=== PATIENT | male | born 1930 | race Caucasian/White ===

== ENCOUNTER 2017-01-21 08:15 | Emergency (ER) | payer MEDICARE, OTHER ==
--- NOTE | ~2017-01-21 | CT71 ---
[facility] A Service of [facility] & [facility] RADIOLOGY TEXT RESULTS PATIENT: BINDU SAUL LOCATION: [facility] : [birth year] UNIT #: [id number] AGE: [address]: Ubaldo Marlow MD SEX: M ORDER DR: [id number] [facility] [address] [place], [place] [address] [id number] E MR#: [id number] [facility] #: [id number] NAME: BINDU SAUL : 1930 SEX: M STUDY DATE/TIME: 01/21/2017 9:52 UNIT: [facility] ROOM: STUDY DESCRIPTION: CT Head Wo Contrast Attending Physician: Ubaldo Marlow M.D. Ordering Physician: Ubaldo Marlow M.D. MEDICAL IMAGING REPORT This report is preliminary unless electronic signature is present EXAM CT head 01/21/2017 HISTORY Pain. Patient describes near syncopal fall yesterday. On blood thinners. Atrial fibrillation. Fell and hit face and head on concrete. Complains of frontal pain, nasal pain, neck pain [address] head performed skull base through vertex without intravenous contrast. This CT exam was performed with one or more of the following radiation dose reduction techniques: automatic exposure control, adjustment of mA and/or kV according to patient size, and iterative reconstruction. COMPARISON STUDY 05/08/2011 FINDINGS Brainstem unremarkable. Cerebellum and cerebral hemispheres show overall preservation of leon matter-white matter differentiation. No intracranial hemorrhage. No evidence of acute cortical ischemia. Extensive subcortical periventricular and deep white matter tract hypodensities likely reflecting sequelae of chronic microvascular ischemia. Midline structures nondisplaced. No acute basal ganglia abnormality. There are basal ganglia calcifications. Ventricles, cisterns, and sulci show mild generalized enlargement consistent with mild generalized atrophy. No intra- or extraaxial mass effect or abnormal intracranial fluid collections. Prominent cavernous carotid and distal vertebral arterial calcifications. The intraorbital soft tissues are unremarkable. Visualized paranasal sinuses and mastoid air cells are clear. Partially visualized nasal bones have an appearance suggesting subtle bilateral nasal bone fractures with subtle leftward angulation. Incompletely visualized on this examination. Please see today's dedicated CT facial STS. [facility] A Service of [facility] & [facility] RADIOLOGY TEXT RESULTS PATIENT: BINDU SAUL [id number] : [birth year] UNIT #: [id number] AGE: [address]: Ubaldo Marlow MD SEX: M ORDER DR: bones for further evaluation. There is probably a fracture of the left superior nasal bone with subtle leftward angulation. Mucosal thickening right maxillary sinus. Soft tissue swelling suggested in the nasal region, incompletely visualized. No soft tissue defect, subcutaneous air, or radiodense foreign body. IMPRESSION 1. No acute-appearing abnormality in brain. Chronic changes include: Mild generalized atrophy, subcortical periventricular and deep white matter tract probable sequelae of chronic microvascular ischemia, prominent atherosclerotic arterial calcifications and cavernous carotid and distal vertebral arteries. 2. Probable bilateral nasal bone fractures incompletely evaluated on this examination. I believe there is mild leftward angulation of the nasal bone fractures. They do not appear significantly distracted. They are incompletely visualized. Please see CT facial bones for further assessment. 3. Soft tissue swelling in the superficial nasal soft tissues. Incompletely visualized. See facial bone CT. 4. Mucosal thickening in the right maxillary sinus. No definite air-fluid levels to suggest acute sinusitis. Dictated by... Jarocho Perez M.D. THIS IS AN ELECTRONICALLY VERIFIED REPORT Jarocho Perez M.D. at 01/21/2017 3:49 PM Arnold TD: 01/21/2017 11:23 JOB #: [id number] MEDICAL IMAGING REPORT Page 1 of 1 COPY
--- NOTE | ~2017-01-21 | CR281 ---
[facility] A Service of [facility] & [facility] RADIOLOGY TEXT RESULTS PATIENT: BINDU SAUL LOCATION: [facility] : [birth year] UNIT #: [id number] AGE: [address]: Ubaldo Marlow MD SEX: M ORDER DR: [id number] [facility] [address] [place], [place] [address] [id number] E MR#: [id number] Acc #: [id number] NAME: BINDU SAUL : 1930 SEX: M STUDY DATE/TIME: 01/21/2017 8:45 UNIT: [facility] ROOM: STUDY DESCRIPTION: CR Wrist Min 3 View Lt Attending Physician: Ubaldo Marlow M.D. Ordering Physician: Ubaldo Marlow M.D. Primary Care Physician: Primary Care Physician No MEDICAL IMAGING REPORT This report is preliminary unless electronic signature is present EXAM Left wrist 3 views INDICATIONS Left hand and wrist pain and swelling and bruising after falling last night. COMPARISON There are no comparisons. FINDINGS There is some calcification involving the TFCC. Carpal alignment maintained. There is minimal ulnar minus variance. There is no acute fracture involving the wrist. There is a fracture at the base of the fifth metacarpal. Please refer to separately dictated hand x-ray for complete findings. There is degenerative change at the base of the thumb. IMPRESSION Fracture at the base of the fifth metacarpal. Please refer to separately dictated hand x-ray for complete details. Dictated by... Nicolas Landers M.D. THIS IS AN ELECTRONICALLY VERIFIED REPORT Nicolas Landers M.D. at 01/22/2017 5:12 PM Juli TD: 01/21/2017 09:59 JOB #: [id number] MEDICAL IMAGING REPORT Page 1 of 1 COPY
--- NOTE | ~2017-01-21 | CT101 ---
[facility] A Service of [facility] & [facility] RADIOLOGY TEXT RESULTS PATIENT: BINDU SAUL LOCATION: [facility] : [birth year] UNIT #: [id number] AGE: [address]: Ubaldo Marlow MD SEX: M ORDER DR: [id number] [facility] [address] [place], [place] [address] [id number] E MR#: [id number] [facility] #: [id number] NAME: BINDU SAUL : 1930 SEX: M STUDY DATE/TIME: 01/21/2017 9:52 UNIT: [facility] ROOM: STUDY DESCRIPTION: CT Maxillofacial Area Wo Cont Attending Physician: Ubaldo Marlow M.D. Ordering Physician: Ubaldo Marlow M.D. MEDICAL IMAGING REPORT This report is preliminary unless electronic signature is present EXAM CT maxillofacial area, 01/21/2017 HISTORY Near syncope, fell today. On blood thinners. Atrial fibrillation. Fell and hit face and head on concrete. Frontal pain, nasal pain, neck pain [address] exam was performed with one or more of the following radiation dose reduction techniques: automatic exposure control, adjustment of mA and/or kV according to patient size, and iterative reconstruction. FINDINGS CT facial bones performed. Bone and soft tissue windows reviewed. Sagittal and coronal reconstructions performed. No acute abnormality in visualized brain. Intraorbital soft tissues unremarkable. Visualized nasopharyngeal, oropharyngeal, pharyngeal mucosal and retropharyngeal spaces unremarkable. Visualized submandibular and parotid glands unremarkable. No adenopathy. Prominent carotid and vertebral arterial calcifications. Mucosal thickening right maxillary sinus. Superficial soft tissue swelling nasal region with what appears to be a small cutaneous laceration right paracentral mid nasal region. No radiodense foreign body. No subcutaneous air. Visualized calvaria intact. Bilateral nasal bone fractures. There are bilateral fracture planes at level of the nasal bridge. On the left a fracture fragment is angled toward the left to a mild degree and distracted from the more medial nasal bridge fragment by about 3.0 mm. On the right the dominant nasal bridge fragment is displaced laterally to left by about 1.0 mm. Secondary fracture plane along the more inferior right nasal bone with subtle left lateral angulation. There is complete STS. [facility] A Service of [facility] RADIOLOGY TEXT RESULTS PATIENT: BINDU SAUL LOCATION: [facility] : [birth year] UNIT #: [id number] AGE: [address]: Ubaldo Marlow MD SEX: M ORDER DR: nondisplaced fracture through the anterior inferior nasal spine. Soft tissue swelling anterior nasal septum. Nasal septum deviates to left. Ostiomeatal complexes are patent. Probable prior surgical intervention right ostiomeatal complex region. The bony structures of orbits intact. Zygomas, zygomatic arches, pterygoid plates, maxillary sinus davis intact. Mandible intact. Streak artifact from dental hardware. Degenerative changes in the visualized upper cervical spine but no fracture seen. Please see dedicated cervical spine CT for further assessment. IMPRESSION 1. Bilateral slightly comminuted nasal bone fractures more pronounced toward the nasal bridge. Minimal leftward angulation of dominant fragments. Minimal distraction of dominant fragments. In addition there is a complete transverse nondisplaced fracture through the anterior inferior nasal spine. Soft tissue swelling in the superficial nasal soft tissues. Probable small cutaneous laceration right paracentral nasal bridge region. No subcutaneous radiodense foreign body. 2. No other acute bony abnormalities. 3. Mucosal thickening right maxillary sinus. Patient appears to be status post prior surgical intervention in the right maxillary region. Correlate clinically. 4. Extensive atherosclerotic vascular calcification. 5. Degenerative changes cervical spine. Please see dedicated CT cervical spine for further assessment. Dictated by... Jarocho Perez M.D. THIS IS AN ELECTRONICALLY VERIFIED REPORT Jarocho Perez M.D. at 01/21/2017 3:50 PM Viola TD: 01/21/2017 11:49 JOB #: [id number] MEDICAL IMAGING REPORT Page 1 of 1 COPY
--- NOTE | ~2017-01-21 | CR141 ---
[facility] A Service of [facility] & [facility] RADIOLOGY TEXT RESULTS PATIENT: BINDU SAUL LOCATION: [facility] : [birth year] UNIT #: [id number] AGE: [address]: Ubaldo Marlow MD SEX: M ORDER DR: [id number] [facility] [address] [place], [place] [address] [id number] E MR#: [id number] Acc #: [id number] NAME: BINDU SAUL : 1930 SEX: M STUDY DATE/TIME: 01/21/2017 8:46 UNIT: [facility] ROOM: STUDY DESCRIPTION: CR Hand Min 3 Views Lt Attending Physician: Ubaldo Marlow M.D. Ordering Physician: Ubaldo Marlow M.D. Primary Care Physician: No Primary Care Physician MEDICAL IMAGING REPORT This report is preliminary unless electronic signature is present EXAM Left hand, 3 views. INDICATION Left hand pain and swelling after falling last night. COMPARISON STUDIES No comparisons. FINDINGS There is a transversely oriented fracture at the base of the fifth metatarsal with some mild ulnar displacement. Fracture appears comminuted. There is associated soft tissue swelling adjacent to the fracture. There is degenerative change at the base of the thumb. Degenerative change involving multiple IP joints. IMPRESSION Fracture at the base of the fifth metacarpal as described. Dictated by... Nicolas Landers M.D. THIS IS AN ELECTRONICALLY VERIFIED REPORT Nicolas Landers M.D. at 01/22/2017 5:12 PM WESLEY/maciej TD: 01/21/2017 09:54 JOB #: [id number] MEDICAL IMAGING REPORT Page 1 of 1 COPY
--- NOTE | ~2017-01-21 | CR72 ---
[facility] A Service of [facility] & [facility] RADIOLOGY TEXT RESULTS PATIENT: BINDU SAUL LOCATION: [facility] : [birth year] UNIT #: [id number] AGE: [address]: Ubaldo Marlow MD SEX: M ORDER DR: [id number] [facility] [address] [place], [place] [address] [id number] E MR#: [id number] Acc #: [id number] NAME: BINDU SAUL : 1930 SEX: M STUDY DATE/TIME: 01/21/2017 8:42 UNIT: [facility] ROOM: STUDY DESCRIPTION: CR Chest Single View Portable Attending Physician: Ubaldo Marlow M.D. Ordering Physician: Ubaldo Marlow M.D. Primary Care Physician: Primary Care Physician No MEDICAL IMAGING REPORT This report is preliminary unless electronic signature is present EXAM Portable chest 01/21/2017 INDICATION Dizziness and fall last night. History of coronary artery disease and atrial fibrillation as well as hypertension. FINDINGS AP portable chest is compared with 01/10/2015. Cardiomegaly is stable. Patient is status post CABG. The thoracic aorta is tortuous and partially calcified. The lungs are clear. No pneumothorax is seen. There are no displaced fractures. IMPRESSION Stable cardiomegaly. No active disease. Dictated by... Luis Eduardo Stallings Jr., M.D. THIS IS AN ELECTRONICALLY VERIFIED REPORT Luis Eduardo Stallings Jr., M.D. at 01/21/2017 4:47 PM MIGDALIA/neelam TD: 01/21/2017 10:05 JOB #: [id number] MEDICAL IMAGING REPORT Page 1 of 1 COPY
--- NOTE | ~2017-01-21 | CT52 ---
[facility] A Service of [facility] & [facility] RADIOLOGY TEXT RESULTS PATIENT: BINDU SAUL LOCATION: [facility] : [birth year] UNIT #: [id number] AGE: [address]: Ubaldo Marlow MD SEX: M ORDER DR: [id number] [facility] [address] [place], [place] [address] [id number] E MR#: [id number] [facility] #: [id number] NAME: BINDU SAUL : 1930 SEX: M STUDY DATE/TIME: 01/21/2017 9:52 UNIT: [facility] ROOM: STUDY DESCRIPTION: CT Cervical Spine Wo Cont Attending Physician: Ubaldo Marlow M.D. Ordering Physician: Ubaldo Marlow M.D. MEDICAL IMAGING REPORT This report is preliminary unless electronic signature is present EXAM CT cervical spine, 01/21/2017. HISTORY Pain. Near syncope. Fall yesterday. On blood thinners. Atrial fibrillation. Fell and hit face and head on concrete. Frontal pain, nasal pain, neck pain; [address] cervical spine was performed. Bone and soft tissue windows reviewed. Sagittal and coronal reconstructions performed. This CT exam was performed with one or more of the following radiation dose reduction techniques: automatic exposure control, adjustment of mA and/or kV according to patient size, and iterative reconstruction. FINDINGS Visualized brain shows no acute abnormality. Visualized paranasal sinuses and mastoid air cells show mucosal thickening in the right maxillary sinus. The visualized nasopharynx, oropharynx, pharyngeal mucosal, retropharyngeal spaces, larynx, subglottic airway, superior mediastinum, lung apices, thyroid, submandibular and parotid glands are unremarkable. No adenopathy. Extensive parotid and vertebral arterial calcification. There is no indication of traumatic paraspinal soft tissue abnormality. Alignment and frontal projection shows subtle levoscoliosis of the cervical spine. This may, in part, be positional in nature. 1-2 mm anterolisthesis of C4 on C5, likely due to facet and disc degenerative changes. There is no indication traumatic malalignment. There are some chronic calcifications in the posterior nuchal ligament. There is extensive fusion across the C3-C4 intervertebral disc space. Vertebral body heights notable for mild generalized loss of height, C5-C6, felt secondary to degenerative changes, predominantly at the endplates. There [facility]. [facility] A Service of [facility] & [facility] RADIOLOGY TEXT RESULTS PATIENT: BINDU SAUL [id number] [birth year] UNIT #: [id number] AGE: [address]: Ubaldo Marlow MD SEX: M ORDER DR: is marked narrowing at C2-C3 intervertebral disc space, C5-C6 and C6-C7 disc spaces and mild to moderate disc space narrowing elsewhere. Facet joint relationships are normal. C2-C3: Posterior disc bulge. Anterior cord contact with some effacement of anterior cord contour. Moderate central spinal canal narrowing. Neural foramina patent without evidence of exiting nerve impingement. C3-C4: As noted, there is near complete fusion across the intervertebral disc space. There are small posterior disc osteophyte complex narrowing the anterior thecal space. Mild central spinal canal narrowing. No cord compression. Facet and ureterovesical junction degenerative changes causing mild to moderate foraminal narrowing bilaterally. C4-C5: Anterolisthesis, as noted. No significant disc bulge or herniation. No significant spinal canal narrowing. Facet degenerative changes bilaterally. Mild to moderate foraminal narrowing bilaterally, right greater than left. C5-C6: Posterior concentric disc osteophyte complex. No significant spinal canal narrowing. Mild mass effect on thecal sac. Uncovertebral and facet degenerative changes. Mild foraminal narrowing bilaterally. C6-C7: Mild broad-based posterior concentric disc osteophyte complex with mild mass effect on thecal sac. No significant spinal canal narrowing. Uncovertebral and facet degenerative changes. Mild foraminal narrowing. C7-T1, T1-T2, T2-T3: No disc bulge or herniation. Spinal canal diameter normal. Neural foramina patent without evidence of exiting nerve impingement. IMPRESSION 1. No traumatic fracture or malalignment. 2. Degenerative 1-2 mm anterolisthesis of C4 on C5. 3. Multilevel degenerative change in the cervical spine. Please see complete [id number] description in body of report above. 4. There is no indication of traumatic paraspinal soft tissue abnormality. 5. Extensive carotid and vertebral arterial calcification. Correlate with the patient's clinical status. Consider assessment with carotid ultrasound on elective basis. Dictated by... Jarocho Perez M.D. THIS IS AN ELECTRONICALLY VERIFIED REPORT Jarocho Perez M.D. at 01/21/2017 3:50 PM JSK/miguel STS. [facility] A Service of [facility] RADIOLOGY TEXT RESULTS PATIENT: BINDU SAUL [id number] [birth year] UNIT #: [id number] AGE: [address]: Ubaldo Marlow MD SEX: M ORDER DR: TD: 01/21/2017 12:13 JOB #: [id number] MEDICAL IMAGING REPORT Page 1 of 1 COPY
--- NOTE | ~2017-01-21 | EKG ---
PATIENT: BINDU SAUL UNIT #: [id number] Ventricular Rate: 63 BPM Atrial Rate: 63 BPM P-R Interval: 206 ms QRS Duration: 88 ms Q-T Interval: 434 ms QTC Calculation(Bezet): 444 ms P Dover: 55 degrees Calculated R Dover: 80 degrees Calculated T Dover: 110 degrees Diagnosis Line: Normal sinus rhythm Diagnosis Line: T wave abnormality, consider anterior ischemia Diagnosis Line: Abnormal ECG Diagnosis Line: When compared with ECG of 10-JAN-2015 18:06, Diagnosis Line: Nonspecific T wave abnormality now evident in Diagnosis Line: Inferior leads Diagnosis Line: Confirmed by ELVIS RAINEY MD ([id number]) on 01/21/2017 Diagnosis Line: 10:46:40 PM INTERPRETING MD: REDD ALDRIDGE
[~2017-01-21 08:15] MED LIST: ALBUTEROL17 GM INH; ALFUZOSIN HCL10 MG PO; ALLERGY RELIEF4 M1 PO; AMIODARONE PO; ANUSOL-HC SUPP25 M1; ASPIRIN EC81 M1 PO; ASPIRIN81 M2 PO; BACITRACIN; BENZONATATE PO; CEFDINIR300 M2 PO; CELEBREX PO; CELECOXIB200 MG PO; CLOPIDOGREL75 MG PO; CORDARONE200 M1 PO; COUMADIN PO; FINASTERIDE5 M1 PO; FLONASE 0.05% N16 G1; GABAPENTIN300 M2 PO; GLUCOSAMINE CHO1 CA3 PO; LOPRESSOR PO; LOTRIMIN 1% CR30 GM EXT; MIRALAX17 GM PO; NASONEX17 GM; NEXIUM PO; NYSTATIN10 GM PO; PLENDIL PO; PLETAL100 MG PO; PREDNISONE10 MG PO; PROCTOFOAM-HC F10 GM PR; PROSCAR5 MG PO; SIMVASTATIN20 MG PO; TOPROL XL PO; TRIAMCINOLONE A15 G6 EXT; TYLENOL #3 PO; VICODIN PO; XARELTO20 MG PO; ZOCOR20 MG PO; ZYRTEC10 M2 PO
[2017-01-21 09:25] LABS: BASOPHIL# 0.1 X10e3 (0-0.3); BASOPHIL% 0.6 % (0-2.5); DIFF IND NO; EOSINOPHIL# 0.1 X10e3 (0-0.7); EOSINOPHIL% 0.8 % (0.0-7.0); HEMOGLOBIN 12.7 gm/dL (13.0-16.0); LYMPHOCYTE# 0.7 X10e3 (1.0-3.5); LYMPHOCYTE% 7.5 % (17.0-45.0); MEAN CELL VOLUME 94.1 FL (83-96); MEAN CORPUSCULAR HEMOGLOBIN 30.7 PG (28-34); MEAN CORPUSCULAR HGB CONC 32.7 g/dL (30-36); MONOCYTE% 9.9 % (3.0-12.0); NEUTROPHIL# 8.1 X10e3 (1.5-7.1); NEUTROPHIL% 81.2 % (40-75); PLATELET COUNT 201 X10e3 (140-420); RED BLOOD COUNT 4.14 X10e (3.90-5.60); RED CELL DISTRIBUTION WIDTH 13.7 % (11.0-15.5); WHITE BLOOD COUNT 9.9 X10e3 (4.0-10.5)
[2017-01-21 09:27] LABS: POC - TROPONIN <0.05 ng/mL (<=0.05)
[2017-01-21 09:36] LABS: ALBUMIN SERUM 4.2 g/dL (3.5-5.0); BILIRUBIN, DIRECT 0.3 mg/dL (0.0-0.2); BILIRUBIN,INDIRECT 1.9 mg/dL (0.0-0.9); BILIRUBIN,TOTAL 2.2 mg/dL (0.2-2.0); BUN/CREATININE RATIO 15.38; CREATININE SERUM 1.3 mg/dL (0.6-1.4); GLOM FILT RATE Estimated 48.7 mL/min (>60); POTASSIUM 4.1 mmol/L (3.5-5.1)
[2017-01-21 11:10] LABS: URINE SOURCE CLEAN CATCH
[2017-01-21 11:15] LABS: URINE APPEARANCE CLEAR; URINE BILIRUBIN NEG (NEG); URINE BLOOD NEG (NEG); URINE COLOR YELLOW; URINE GLUCOSE NEG (NEG); URINE KETONE TRACE (NEG); URINE LEUKOCYTE ESTERASE NEG (NEG); URINE NITRATE NEG (NEG); URINE PROTEIN NEG (NEG); URINE SPECIFIC GRAVITY 1.017 (1.003-1.035)
[2017-01-21 11:46] LABS: CULTURE INDICATED? NO
[2017-01-21 12:03] LABS: POC - CKMB 5.3 ng/mL (0.0-7.9); POC - TROPONIN <0.05 ng/mL (<=0.05)
== END 2017-01-21 13:39 | disposition home or self-care (01) ==
LOC: CED 08:15
PROVIDERS: Emergency Medicine
DX: S02.2XXA Fracture of nasal bones, initial encounter for closed fracture (principal); S62.317A Displaced fracture of base of fifth metacarpal bone, left hand, initial encounter for closed fracture; R42 Dizziness and giddiness; Z23 Encounter for immunization; I10 Essential (primary) hypertension; Z95.1 Presence of aortocoronary bypass graft; W19.XXXA Unspecified fall, initial encounter; Y92.9 Unspecified place or not applicable
CPT/HCPCS: 29125; 36415; 70450; 70486; 71010; 72125; 73110; 73130; 80048; 80076; 81003; 82553; 82947; 84484; 85025; 90471; 90715; 93005; 96360; 99284

== ENCOUNTER → 2017-03-17 | Outpatient (CLI) | payer MEDICARE, OTHER ==
--- NOTE | ~2017-03-17 | CR97 ---
[facility] A Service of [facility] & [facility] RADIOLOGY TEXT RESULTS PATIENT: BINDU SAUL LOCATION: [facility] : [birth year] UNIT #: [id number] AGE: [address]: Jose Naqvi MD SEX: M ORDER DR: [id number] [facility] [address] [place], [place] [address] [id number] O MR#: [id number] [facility] #: [id number] NAME: BINDU SAUL : 1930 SEX: M STUDY DATE/TIME: 03/17/2017 10:52 UNIT: [facility] ROOM: STUDY DESCRIPTION: CR Esophagram Attending Physician: Jose Naqvi Jr., M.D. Referring Physician: Jose Naqvi Jr., M.D. Ordering Physician: Jose Naqvi Jr., M.D. Primary Care Physician: Andrew Friedman D.O. MEDICAL IMAGING REPORT This report is preliminary unless electronic signature is present EXAM Double contrast barium esophagram INDICATION Dysphagia, cough and congestion for 8 months. This apparently began after an esophagoscopy with dilatation in August 2016. The patient was administered bicarbonate crystals followed by thick and thin barium and multiple fluoroscopic images were obtained. FINDINGS The initial telecasting engineer image was unremarkable. No obvious stricture or mass lesion was identified. There is very limited distension of the esophagus which really precludes evaluation of the mucosa. Again, no obvious stricture or mass lesion was seen. No extravasation of contrast material is identified. No hiatal hernia was noted. This patient does have poor stripping of the esophagus with multiple secondary contractions required for stripping of the esophagus. The patient was also noted to have tertiary contractions as well. No obvious reflux was seen but this was difficult again to evaluate due to poor stripping of the esophagus. A total of 18 fluoroscopic images were obtained. Total fluoroscopy time was 0.8 minutes. IMPRESSION 1. This patient had limited distension of the esophagus despite administration of bicarbonate crystals. No obvious stricture or mass lesion was seen. 2. The patient does have poor stripping of the esophagus with multiple secondary and tertiary contractions noted. This could be further assessed with an esophageal manometry as deemed clinically appropriate. Dictated by... Ivelisse F. Judge, M.D. [facility] A Service of [facility] & [facility] RADIOLOGY TEXT RESULTS PATIENT: BINDU SAUL LOCATION: [facility] #: [id number] : [birth year] UNIT #: [id number] AGE: [address]: Jose Naqvi MD SEX: M ORDER DR: THIS IS AN ELECTRONICALLY VERIFIED REPORT Ivelisse Judge M.D. at 03/20/2017 7:30 AM ANDRAE/carrington TD: 03/19/2017 12:40 JOB #: [id number] MEDICAL IMAGING REPORT Page 1 of 1 COPY
== END | disposition home or self-care (01) ==
LOC: CRAD 09:22
DX: R13.10 Dysphagia, unspecified (principal); R55 Syncope and collapse; K22.8 Other specified diseases of esophagus
CPT/HCPCS: 74220

== ENCOUNTER 2017-05-13 14:02 | Emergency (ER) | payer MEDICARE, OTHER ==
[~2017-05-13] VITALS: Ht 172.7 cm; Wt 74.8 kg
--- NOTE | ~2017-05-13 | CT71 ---
[facility] A Service of [facility] RADIOLOGY TEXT RESULTS PATIENT: BINDU SAUL LOCATION: [facility] : [birth year] UNIT #: [id number] AGE: [address]: Rigo Schaeffer MD SEX: M ORDER DR: [id number] [facility] [address] [place], [place] [address] [id number] E MR#: [id number] Acc #: [id number] NAME: BINDU SAUL : 1930 SEX: M STUDY DATE/TIME: 05/13/2017 15:37 UNIT: [facility] ROOM: STUDY DESCRIPTION: CT Head Wo Contrast Attending Physician: Boom Schaeffer M.D. Referring Physician: Tacho Tyler M.D. Ordering Physician: Pedro Luis Montes M.D. Primary Care Physician: Andrew Friedman D.O. MEDICAL IMAGING REPORT This report is preliminary unless electronic signature is present EXAM CT head without contrast. INDICATIONS Tripped while bowling, hit head with loss of consciousness today, with posterior headache since then. TECHNIQUE Unenhanced images were obtained through the brain. This CT exam was performed with one or more of the following radiation dose reduction techniques: automatic exposure control, adjustment of mA and/or kV according to patient size, and iterative reconstruction. FINDINGS There is generalized atrophy. There is a parafalcine left-sided acute subdural hematoma. It is about 6 to 7 cm thick anteriorly and slightly thinner posteriorly. It extends along the entire margin of the falx. There is no parenchymal hemorrhage. IMPRESSION 1. There is a left-sided parafalcine subdural hematoma that is up to 6 or 7 mm in thickness. It extends along the entire length of the falx. The patient has underlying atrophy and this is not causing any significant compression of the brain. There is also posterior soft tissue swelling and hematoma formation of the left scalp. The skull is intact. Dictated by... Saul Tipton M.D. THIS IS AN ELECTRONICALLY VERIFIED REPORT [facility] A Service of [facility] RADIOLOGY TEXT RESULTS PATIENT: BINDU SAUL LOCATION: [facility] #: [id number] : [birth year] UNIT #: [id number] AGE: [address]: Rigo Schaeffer MD SEX: M ORDER DR: Saul Tipton M.D. at 05/13/2017 10:10 PM FREDDY/greg TD: 05/13/2017 19:39 JOB #: [id number] MEDICAL IMAGING REPORT Page 1 of 1 COPY
[2017-05-13 15:03] LABS: BASOPHIL# 0.1 X10e3 (0-0.3); BASOPHIL% 0.8 % (0-2.5); EOSINOPHIL# 0.2 X10e3 (0-0.7); HEMATOCRIT 39.6 % (38.0-50.0); HEMOGLOBIN 13.3 gm/dL (13.0-16.0); LYMPHOCYTE% 13.2 % (17.0-45.0); MEAN CELL VOLUME 92.6 FL (83-96); MEAN CORPUSCULAR HEMOGLOBIN 31.1 PG (28-34); MEAN CORPUSCULAR HGB CONC 33.6 g/dL (30-36); MEAN PLATELET VOLUME 7.5 FL (6.5-11.5); MONOCYTE# 0.8 X10e3 (0-1.0); MONOCYTE% 11.1 % (3.0-12.0); NEUTROPHIL# 5.3 X10e3 (1.5-7.1); NEUTROPHIL% 71.9 % (40-75); PLATELET COUNT 225 X10e3 (140-420); RED BLOOD COUNT 4.27 X10e (3.90-5.60); RED CELL DISTRIBUTION WIDTH 13.9 % (11.0-15.5); WHITE BLOOD COUNT 7.4 X10e3 (4.0-10.5)
[2017-05-13 15:07] LABS: DIFF IND NO
[2017-05-13 15:17] LABS: INR 1.7; PARTIAL THROMBOPLASTIN TIME 30.8 SECONDS (23.5-31.3); PROTHROMBIN TIME (PATIENT) 18.1 SECONDS (10.0-11.7)
[2017-05-13 16:07] LABS: BUN/CREATININE RATIO 15.33; CALCIUM SERUM 9.3 mg/dL (8.4-10.2); CREATININE SERUM 1.5 mg/dL (0.6-1.4); POTASSIUM 4.4 mmol/L (3.5-5.1)
== END 2017-05-13 16:49 | disposition hospice, home (50) ==
LOC: CED 14:02 → CFTX 15:05 → CED 16:49
PROVIDERS: Emergency Medicine
DX: S06.5X0A Traumatic subdural hemorrhage without loss of consciousness, initial encounter (principal); I48.91 Unspecified atrial fibrillation; Z79.01 Long term (current) use of anticoagulants; Z79.82 Long term (current) use of aspirin; Z79.899 Other long term (current) drug therapy; W01.0XXA Fall on same level from slipping, tripping and stumbling without subsequent striking against object, initial encounter; Y92.89 Other specified places as the place of occurrence of the external cause
CPT/HCPCS: 36415; 70450; 80048; 85025; 85610; 85730; 96372; 99285; J3430